=== PATIENT | male | born 1990 | race Caucasian/White ===

== ENCOUNTER 2018-12-30 18:28 | Emergency (ER) | payer SELFPAY ==
[2018-12-30] MEDS ORDERED: CEPHALEXIN 500 MG CAPSULE PO ONE (18:51)
[2018-12-30] MEDS ORDERED: HYDROCODONE/ACETAMINOPHEN 5-325 MG TABLET PO ONE (18:51)
--- NOTE | 2018-12-30 18:53 | ER Document Report ---
HPI - HPI Patient complains to provider of: Hand injury Time Seen by Provider: 12/30/18 18:43 Onset: Just prior to arrival Onset/Duration: Sudden Quality of pain: Achy Pain Level: 5 Context: Patient states that he punched a mirror that was on the back of a bathroom door repeatedly. Patient is right-hand dominant. Patient with laceration to right second finger. Patient with positive deformity to the right fourth and fifth metacarpals. Patient complains of pain that extends into the forearm. Associated Symptoms: Other - Right hand injury Exacerbated by: Movement Relieved by: Denies Similar symptoms previously: Yes Recently seen / treated by doctor: No - ROS ROS below otherwise negative: Yes Systems Reviewed and Negative: Yes All other systems reviewed and negative - CONSTITUTIONAL Constitutional: DENIES: Fever - GASTROINTESTINAL Gastrointestinal: DENIES: Patient vomiting - MUSCULOSKELETAL Musculoskeletal: REPORTS: Extremity pain - Right hand, right forearm, Swelling - DERM Skin Color: Normal Skin Problems: Abrasion, Laceration Past Medical History - General Information source: Patient - Social History Smoking Status: Never Smoker Frequency of alcohol use: None Drug Abuse: Marijuana Occupation: Construction Lives with: Spouse/Significant other Family History: Reviewed & Not Pertinent Renal/ Medical History: Reports: Hx Kidney Stones Surgical Hx: Negative - Immunizations Immunizations up to date: Yes Hx Diphtheria, Pertussis, Tetanus Vaccination: Yes Vertical Provider Document - CONSTITUTIONAL Agree With Documented VS: Yes Exam Limitations: No Limitations General Appearance: WD/WN, No Apparent Distress - INFECTION CONTROL TRAVEL OUTSIDE OF THE [place] IN LAST 30 DAYS: No - HEENT HEENT: Atraumatic, Normocephalic - NECK Neck: Normal Inspection - RESPIRATORY Respiratory: No Respiratory Distress - CARDIOVASCULAR Pulses: Normal: Radial - MUSCULOSKELETAL/EXTREMETIES Musculoskeletal/Extremeties: MAEW, Tender - Tenderness to right hand. Patient with positive deformity to the base of the right fourth fifth metacarpal area. Patient with laceration to right second and superficial laceration to the third finger. Patient with tenderness that extends up distal half of right forearm., Edema - Right hand - NEURO Level of Consciousness: Awake, Alert, Appropriate Motor/Sensory: No Motor Deficit Notes: Patient able to flex and extend fingers of right hand against resistance. - DERM Integumentary: Warm, Dry, Laceration - 2 cm laceration over the right second finger PIP joint, no tendon laceration Course - Re-evaluation Re-evalutation: 12/30/18 19:37 Dr. Mccauley to bedside. Patient placed in finger traps, gentle traction applied and right fifth metacarpal felt to reduce. Hand visually in better alignment. Postreduction films ordered. 12/30/2018 20:05 Patient states that he felt and pop and slide back out of alignment. Patient states that he quickly grabbed his fingers and tongue and felt injury reduced again. Hand visually appears with good alignment. 2+ radial pulse, cap refill less than 3 seconds to fingers of right hand. 12/30/18 20:[address] Pinto who recommends having patient presents to the office at 8 AM on Wednesday morning states that patient will likely need surgery involving pinning. Discussed with patient plan of care and importance of follow-up with the surgeon for definitive management. Patient advised that Dr. Pinto will see him in the office at 8 AM on Wednesday. Patient does plan to keep this appointment. Discussed worsening symptoms that patient should return for. - Vital Signs Vital signs: Temp Pulse Resp BP Pulse Ox 98.1 F 67 14 143/96 H 98 12/30/18 18:38 12/30/18 18:38 12/30/18 18:38 12/30/18 18:38 12/30/18 18:38 - Diagnostic Test Radiology reviewed: Image reviewed, Reports reviewed Procedures - Immobilization Right Hand Pre-Proc Neuro Vasc Exam: Normal Immobilizer type: Ulnar Performed by: PCT Post-Proc Neuro Vasc Exam: Normal Alignment checked and good: Yes - Laceration/Wound Repair Right Finger 2nd digit Wound length (cm): 2 Wound's Depth, Shape: Flap Anesthetic type: 1% Lidocaine Wound explored: Clean, No foreign body removed Wound Repaired With: Sutures Suture Size/Type: 5:0, Nylon Number of Sutures: 5 Post-procedure wound care: Sterile dressing applied Post-procedure NV exam normal: Yes Complications: No Hands back picture: 1 - 2 cm laceration Discharge - Discharge Clinical Impression: Fracture dislocation of carpometacarpal (CMC) joint Metacarpal bone fracture Qualifiers: Encounter type: initial encounter Metacarpal bone: unspecified metacarpal Fracture type: closed Metacarpal location: base Fracture morphology: unspecified fracture morphology Fracture alignment: displaced Qualified Code(s): S62.319A - Displaced fracture of base of unspecified metacarpal bone, initial encounter for closed fracture Finger laceration Qualifiers: Encounter type: initial encounter Finger: index finger Damage to nail status: without damage Foreign body presence: without foreign body Laterality: right Qualified Code(s): S61.210A - Laceration without foreign body of right index finger without damage to nail, initial encounter Condition: Stable Disposition: HOME, SELF-CARE Instructions: Fracture ([facility]), Laceration Care ([facility]), Oral Narcotic Medication ([facility]), Prophylactic Antibiotic ([facility]), Splint Precautions ([facility]) Additional Instructions: Return immediately for any new or worsening symptoms Followup with Dr. Pinto in the office at 8 AM on Wednesday. Let the office staff know that he was consulted and he recommended that he present to the office at this time. Suture removal in 12 days Prescriptions: Cephalexin Monohydrate [Keflex 500 mg Capsule] 500 mg PO Q6H 5 Days capsule Oxycodone HCl/Acetaminophen [Percocet 5-325 mg Tablet] 1 tab PO ASDIR PRN #15 tablet PRN Reason: Forms: Return to Work Referrals: LIMA PINTO MD [ACTIVE STAFF] - 01/03/19 8:00 am
--- NOTE | 2018-12-30 19:09 | RADIOLOGY REPORT (SQ) ---
EXAM DESCRIPTION: FOREARM RIGHT COMPLETED DATE/TIME: 12/30/2018 7:00 pm REASON FOR STUDY: punched door, FA pain COMPARISON: None. NUMBER OF VIEWS: Two views. TECHNIQUE: Two radiographic images acquired of the right forearm, including elbow and wrist in at le ast one projection. LIMITATIONS: None. FINDINGS: MINERALIZATION: Normal. BONES: No evidence of fracture of the radius or ulna. There is a fracture at the base of the 4th or 5th metacarpal as well as posterior dislocation of the 4th and 5th carpometacarpal joints. This is s een to advantage on hand x-ray obtained simultaneously. SOFT TISSUES: No obvious swelling or foreign body. OTHER: No other significant finding. IMPRESSION: Fracture dislocation of the 4th and 5th metacarpals at the carpometacarpal joints. TECHNICAL DOCUMENTATION: JOB ID: [id number] [employer]- All Rights Reserved Reading location - IP/workstation name: [email or web address]
--- NOTE | 2018-12-30 19:10 | RADIOLOGY REPORT (SQ) ---
EXAM DESCRIPTION: HAND RIGHT 3 VIEWS COMPLETED DATE/TIME: 12/30/2018 7:00 pm REASON FOR STUDY: obvious deformity of right hand COMPARISON: None. EXAM PARAMETERS: NUMBER OF VIEWS: Three views. TECHNIQUE: AP, lateral and oblique radiographic images acquired of the right hand. LIMITATIONS: None. FINDINGS: MINERALIZATION: Normal. BONES: Multiple tiny bony fragments at the base of the 4th and 5th metacarpals as well as just dorsal and lateral to the distal aspect of the 5th metacarpal. JOINTS: The 4th and 5th carpometacarpal joints are posteriorly dislocated. SOFT TISSUES: Soft tissue swelling is present about the dorsum of the hand OTHER: No other significant finding. IMPRESSION: Fracture dislocation of the 4th and 5th metacarpals at the carpometacarpal joints. TECHNICAL DOCUMENTATION: JOB ID: [id number] [employer]- All Rights Reserved Reading location - IP/workstation name: [email or web address]
[2018-12-30] MEDS ORDERED: KETOROLAC TROMETHAMINE 60 MG/2 ML SDV IM ONE (19:35)
[2018-12-30] MEDS ORDERED: HYDROMORPHONE HCL INJ/PF 2 MG/ML AMPULE IM ONE (19:35)
[2018-12-30] MEDS ORDERED: LIDOCAINE 1% INJ-PF (10 MG/ML) 30 ML SDV INJ ONE (19:43)
--- NOTE | 2018-12-30 19:52 | ER Document Report ---
Doctor's Note Notes: 12/30/18 19:49 Patient has been seen and evaluated by myself. Patient had significant amount of pain in his right hand after a boxer injury. Had a fracture dislocation of the fifth and fourth metacarpal with fractures. Physical exam revealed posteriorly dislocated fourth and fifth metacarpals with a laceration on the se cond digit of the right hand. Neurovascularly intact. Sensation intact. Tendons are intact. Initial 24 hours of definitive fracture care provided by myself, Dr. Niall Mccauley. Please see nurse practitioner's note for further details. Procedure note: 1.Fracture reduction. 2. Splint placement. After consent was obtained and pain medication was given patient was placed in finger traps. With gentle traction the fourth and fifth metacarpal bones were reduced without difficulty. Postreduction films were obtained and observed satisfactory reduction. Patient was placed in a splint. Patient tolerated procedure well. Splint was applied by myself. After splint was applied the pulses were checked. Radial and ulnar pulses were intact. Sensation intact. Assessment/plan: Patient will be kept in splint. Will need follow-up with hand specialist. Pain medication as needed.
--- NOTE | 2018-12-30 20:21 | RADIOLOGY REPORT (SQ) ---
EXAM DESCRIPTION: Right hand at 1949 Views: 2 CLINICAL HISTORY: 28 years Male, post reduction hand COMPARISON: 12/30/2018 at 1855. FINDINGS: There is bandage material somewhat obscuring visualization of the index finger. Overall alignment is grossly anatomic, although the fingers are held slightly in flexion. There has been reduction of the dislocation of the 4th and 5th CMC joints. IMPRESSION: 1. Interval reduction of 4th and 5th CMC dislocation
[2018-12-30] MEDS ORDERED: ONDANSETRON 4 MG TAB.RAPDIS PO ONE (20:55)
[2018-12-30 21:21] VITALS: BP 121/73
== END 2018-12-30 21:21 | disposition home or self-care (01) ==
LOC: ER 18:28
DX: S61.210A Laceration without foreign body of right index finger without damage to nail, initial encounter (principal); S62.319A Displaced fracture of base of unspecified metacarpal bone, initial encounter for closed fracture; W25.XXXA Contact with sharp glass, initial encounter
CPT/HCPCS: 99283; 96372; 73090; 73130; 73120; 12001; L3908 ×2; J1885; S0119; J1170